=== PATIENT | male | born 1985 | race Hispanic/Latino ===

== ENCOUNTER 2018-07-24 20:38 | Emergency (ER) | payer SELFPAY ==
[2018-07-24] MEDS ORDERED: Metoclopramide HCl 10 MG/2 ML VIAL ONE (21:14)
[2018-07-24] MEDS ORDERED: Acetaminophen 500 MG TAB ONE (21:14)
[2018-07-24] MEDS ORDERED: diphenhydrAMINE 50 MG/ML VIAL ONE (21:14)
--- NOTE | 2018-07-24 21:42 | CT ---
Exam: Head CT without contrast HISTORY: Headache, left-sided. Symptoms x4 days. COMPARISON: none FINDINGS: Hemorrhage: No intraparenchymal hemorrhage or extra-axial hematoma. Brain parenchyma: Cortical gama-white matter differentiation is preserved. No mass effect or midline shift. Basilar cisterns are patent. Ventricular system: Ventricles and sulci are patent and symmetric. Calvarium: Intact. Sinuses and mastoid air cells: Minimal mucosal thickening of the ethmoid air cells IMPRESSION: No acute intracranial process.
[2018-07-24] MEDS ORDERED: Ketorolac Tromethamine 30 MG/ML VIAL ONE (22:54)
[2018-07-24] MEDS ORDERED: methylPREDNISolone Sod Succ/PF 125 MG/2 ML VIAL ONE (23:14)
== END 2018-07-24 23:43 | disposition home or self-care (01) ==
LOC: SCSER 20:38
DX: R51 Headache (principal); R29.810 Facial weakness; E11.9 Type 2 diabetes mellitus without complications
CPT/HCPCS: 70450; 96365; 96366; 96375; J1200; J1885; J2765; J2930